=== PATIENT | male | born 1990 | race African-American/Black ===

== ENCOUNTER 2019-03-28 10:25 | Emergency (ER) | payer OTHER ==
[2019-03-28] MEDS ORDERED: Lidocaine/Epineph/Tetraca GEL* 3 ML GEL IN SYR TOPICAL ONE (11:55)
--- NOTE | 2019-03-28 11:55 | ED ---
Adult Trauma - HPI Summary HPI Summary: This patient is a 28 year old M presenting to [facility] with a chief complaint of fall at 0750 this morning. Pt fell out of top bunk bed. Pt reports no LOC. His last tetanus shot was in December,. Pt is not able to walk on ankle. He has no medical problem, no surgeries, no allergies, and does smoke cigarettes. Per triage, the patient rates the pain 10/10 in severity. Medications reviewed. Allergies noted - History of Current Complaint Chief Complaint: EDLacSutureRecheck Stated Complaint: LIP AND ANKLE INJURY PER PT Time Seen by Provider: 03/28/19 11:45 Hx Obtained From: Patient Mechanism of Injury: Fall Ambulatory at the Scene: No Loss of Consciousness: no loss of consciousness Onset/Duration: Started Hours Ago, Still Present Onset of Pain: Post Accident Onset Severity: Severe Current Severity: Severe Pain Intensity: 10 Pain Scale Used: 0-10 Numeric Location: Extremities Aggravating Factor(s): Weight Bearing Alleviating Factor(s): Nothing Associated Signs & Symptoms: Positive: Negative - Allergy/Home Medications Allergies/Adverse Reactions: Allergies Allergy/AdvReac Type Severity Reaction Status Date / Time No Known Allergies Allergy Verified 03/28/19 11:07 PMH/Surg Hx/FS Hx/Imm Hx Sensory History: Denies: Hx Legally Blind, Hx Deafness Opthamlomology History: Denies: Hx Legally Blind EENT History: Denies: Hx Deafness - Surgical History Surgical History: None Infectious Disease History: No Infectious Disease History: Denies: Traveled Outside the [place] in Last 30 Days - Family History Known Family History: Positive: Non-Contributory - Social History Occupation: Unemployed Alcohol Use: None Substance Use Type: Reports: None Hx Tobacco Use: Yes Smoking Status (MU): Heavy Every Day Tobacco Smoker Review of Systems Negative: Fever Positive: Other - Right leg pain Positive: Other - Laceration on lip All Other Systems Reviewed And Are Negative: Yes Physical Exam - Summary Physical Exam Summary: Constitutional: Well-developed, Well-nourished, Alert. (-) Distressed Skin: Warm, Dry, 2 cm laceration central over upper lip, no through and though laceration HENT: Normocephalic; Atraumatic Eyes: Conjunctiva normal Neck: Musculoskeletal ROM normal neck. (-) JVD, (-) Stridor, (-) Tracheal deviation Cardio: Rhythm regular, rate normal, Heart sounds normal; Intact distal pulses; The pedal pulses are 2+ and symmetric. Radial pulses are 2+ and symmetric. (-) Murmur Pulmonary/Chest wall: Effort normal. (-) Respiratory distress, (-) Wheezes, (-) Rales Abd: Soft, (-) tenderness, (-) Distension, (-) Guarding, (-) Rebound Musculoskeletal: Right ankle swollen with medial malleolus tenderness, proximal tibia tender as well, pt able to wiggle toes, DP/PT pulse 2+. Lymph: (-) Cervical adenopathy Neuro: Alert, Oriented x3 Psych: Mood and affect Normal Triage Information Reviewed: Yes Vital Signs On Initial Exam: Initial Vitals Temp Pulse Resp BP Pulse Ox 98.7 F 72 20 166/92 98 03/28/19 10:29 03/28/19 10:29 03/28/19 10:29 03/28/19 10:29 03/28/19 10:29 Vital Signs Reviewed: Yes Procedures - Procedure Summary Procedure Summary: Laceration Repair on Lip: 3, 6-0 stitches , simple uninterrupted. Splint placed. Diagnostics - Vital Signs Vital Signs Temp Pulse Resp BP Pulse Ox 03/28/19 10:29 98.7 F 72 20 166/92 98 - Laboratory Lab Statement: Any lab studies that have been ordered have been reviewed, and results considered in the medical decision making process. - Radiology Foot X-Ray Radiology Interpretation Completed By: Radiologist Summary of Radiographic Findings: Foot X-Ray reveals, per radiologist, IMPRESSION: Soft tissue swelling adjacent to the medial and lateral malleolus with avulsion fracture of the medial malleolus. ED physician has reviewed this radiology report. Ankle X-Ray Radiology Interpretation Completed By: Radiologist Summary of Radiographic Findings: Ankle X-Ray reveals, per radiologist, IMPRESSION: Soft tissue swelling adjacent to the medial and lateral malleolus with avulsion fracture of the medial malleolus. ED physician has reviewed this radiology report. - CT Lower Extremity CT CT Interpretation Completed By: Radiologist Summary of CT Findings: Lower Extremity CT reveals, per radiologist, IMPRESSION : Minimally displaced obliquely oriented fracture through the proximal shaft of the fibula. ED physician has reviewed this radiology report. Re-Evaluation - Re-Evaluation First Eval Re-Evaluation Time: 12:47 Comment: Laceration Repair, Splint placed. Adult Trauma Course/Dx - Course Course Of Treatment: Patient is here after falling off his top bunk bed. Patient had a old fracture to the medial malleolus and a nondisplaced fibular fracture on the right. Patient had his leg splinted and was instructed not to bear weight on his foot. Patient had crutches from senior care. Patient had successful repair of his lip laceration. - Diagnoses Provider Diagnoses: Fall, Right fibular fracture, Fracture of medial malleolus of right tibia, Lip laceration Discharge ED - Sign-Out/Discharge Documenting (check all that apply): Patient Departure - Discharge Patient Received Moderate/Deep Sedation with Procedure: No - Discharge Plan Condition: Stable Disposition: HOME Patient Education Materials: Ankle Fracture (ED) Referrals: Maribel Raymundo [Primary Care Provider] - Chente Ji MD [Medical Doctor] - 1 Week Additional Instructions: Please follow up with orthopedics next week. Do not place weight on foot. Take ibuprofen as needed for pain. PLEASE RETURN TO EMERGENCY DEPARTMENT FOR ANY NUMBNESS, TINGLING OR WORSENING PAIN IN THE LEG. - Billing Disposition and Condition Condition: STABLE Disposition: Home - Attestation Statements Document Initiated by Keshaibe: Yes Documenting Scribe: Linnea Gómez Provider For Whom Perez is Documenting (Include Credential): Levar Levin MD Scribe Attestation: Linnea Cooper, scribed for Levar Levin MD on 03/28/19 at 1704. Scribe Documentation Reviewed: Yes Provider Attestation: The documentation as recorded by the Linnea tejeda accurately reflects the service I personally performed and the decisions made by , Levar Levin MD Status of Scribe Document: Viewed
[2019-03-28 13:31] VITALS: BP 147/85
== END 2019-03-28 13:30 | disposition home or self-care (01) ==
LOC: ED 10:25
DX: S82.431A Displaced oblique fracture of shaft of right fibula, initial encounter for closed fracture (principal); S82.54XA Nondisplaced fracture of medial malleolus of right tibia, initial encounter for closed fracture; S01.511A Laceration without foreign body of lip, initial encounter; W06.XXXA Fall from bed, initial encounter; Y92.003 Bedroom of unspecified non-institutional (private) residence as the place of occurrence of the external cause; F17.200 Nicotine dependence, unspecified, uncomplicated
CPT/HCPCS: 12011; 99282; A9270-GY